=== PATIENT | male | born 1960 | race Caucasian/White ===

== ENCOUNTER 2019-08-27 12:24 | Inpatient (IN) | payer BC, SELFPAY ==
[2019-08-27] VITALS (17 sets, daily range): BP systolic 91–137; BP diastolic 59–81; PULSE 72–128; RESP 14–19; TEMP 36.6–37.1; O2SAT 97–100; BMI 30.6
[2019-08-27 13:41] LABS: Basophils Absolute Auto 0.1 K/mm3 (0.0-0.1); Basophils Percent Auto 0.7 % (0.2-1.2); Eosinophils Absolute Auto 0.1 K/mm3 (0-0.3); Eosinophils Percent Auto 1.2 % (0-4.4); Hematocrit 23.1 % (42.0-52.0); Hemoglobin 7.3 g/dL (14.0-18.0); Immature Granulocyte Absolute 0.13 K/mm3 (0.00-0.031); Immature Granulocyte Percent A 1.2 % (0-0.5); Lymphocytes Absolute Auto 1.91 K/mm3 (0.9-3.2); Mean Corpuscular HGB Conc 31.6 g/dl (32-36); Mean Corpuscular Hemoglobin 30.5 pg (26-34); Mean Corpuscular Volume 96.7 fl (80-100); Mean Platelet Volume 9.8 fl (7.4-10.4); Monocytes Absolute Auto 0.7 K/mm3 (0.1-0.6); Monocytes Percent Auto 6.6 % (2.6-8.5); Neutrophils Absolute Auto 7.7 K/mm3 (1.3-6.7); Neutrophils Percent Auto 72.3 % (45.5-73.1); Nucleated Red Blood Cells Absolute Auto 0.1 K/mm3 (0.0-0.012); Nucleated Red Blood Cells Perc 0.8 % (0.0-0.2); Platelet Count Result 404 k/mm3 (150-375); Red Blood Count 2.39 M/mm3 (4.6-6.20); Red Cell Distribution Width 14.1 % (11.5-14.5); White Blood Count 10.6 K/mm3 (4.5-10.0)
[2019-08-27 13:55] LABS: Alanine Aminotransferase 25 U/L (4-50); Alkaline Phosphatase 58 U/L (38-126); Aspartate Amino Transferase 26 U/L (17-59); Bilirubin,Total 0.2 mg/dL (0.2-1.3); Blood Urea Nitrogen 23 mg/dL (9-20); Calcium 9.1 mg/dL (8.4-10.2); Carbon Dioxide 24 mmol/L (22-30); Chloride 100 mmol/L (98-107); Estimated CRCL calculation 81 ml/min; Estimated Glomerular Filt Rate > 60; Glucose 106 mg/dL (75-110); INR 0.9; Potassium 4.3 mmol/L (3.4-5.0); Sodium 134 mmol/L (137-145)
[2019-08-27 13:56] LABS: Partial Thromboplastin Time 27.5 SECONDS (22.3-36.8)
--- NOTE | 2019-08-27 14:31 | ED.GIBLEED ---
HPI - GI Bleed General Chief complaint: GI Bleed Stated complaint: +BLOOD IN STOOL Time Seen by Provider: 08/27/19 14:21 Source: patient and RN notes reviewed Mode of arrival: ambulatory Limitations: no limitations History of Present Illness HPI Narrative: Pt is a 58 y/o male with a Hx of hemorrhoids, who presents to the ED with c/o black stools starting 8 days ago. He notes that he has had roughly 1 BM per day for the past week, and states that each stool has been black in color. Pt reports lightheadedness and dyspnea on exertion accompanying his dark stools, but denies any CP, ABD pain, or vomiting. He also notes having nausea shortly after defecating. Pt states that he is currently taking ASA 81 mg daily. MD complaint: melena Onset (ago): day(s) (8) Context: hemorrhoids Associated symptoms: nausea and other (dyspnea on exertion; lightheadedness) Related Data Home Medications Medication Instructions Recorded Confirmed atorvastatin 10 mg tablet 10 mg PO DAILY 06/18/19 06/18/19 lisinopril 20 mg tablet 20 mg PO DAILY 06/18/19 06/18/19 Allergies Allergy/AdvReac Type Severity Reaction Status Date / Time Penicillins Allergy Unknown Unknown Verified 08/27/19 14:32 Review of Systems Review of Systems: All systems reviewed & are unremarkable except as noted in HPI and below Cardiovascular: Cardiovascular: Denies chest pain Respiratory: Respiratory: Reports dyspnea on exertion Gastrointestinal: Gastrointestinal: Denies abdominal pain, Reports melena, Reports nausea and Denies vomiting Neurologic: Reports other (lightheadedness) PMFSH Past Medical History Medical History Hemorrhoids HLD (hyperlipidemia) Hypertension Nephrolithiasis Normal colonoscopy (~2010) UTI (urinary tract infection) Surgical History Surgical History Hx of colonoscopy at age 50 Hx of tonsillectomy (~1968) Social History Social History Smoking status: Light tobacco smoker Second hand tobacco smoke exposure: No Alcohol intake: never Gender identity (if verbalized by the patient): Male Exam Narrative: Exam Narrative: GENERAL: Well-appearing, well-nourished, and in no acute distress. HEAD: Normocephalic, atraumatic EYES: PERRLA and EOMI, conjunctiva clear without discharge THROAT:Mucous membranes moist, Oropharynx normal without erythema, exudate, peritonsillar swelling or fluctuance NECK: Supple, without lymphadenopathy or mass RESPIRATORY: No respiratory distress, Airway patent, Respirations non-labored, Clear to auscultation without rales, rhonchi or wheeze HEART: Regular rate and rhythm. No murmur heard. Normal peripheral pulses. ABDOMEN: Soft, nontender, nondistended, normal active bowel sounds. No masses. No rebound or guarding, No organomegaly. guaic positive, no rectal bleeding EXTREMITIES: No edema, normal strength with full range of motion. SKIN: Warm, dry, normal color without rash NEURO: Alert and oriented x3. CN 2-12 grossly intact. No focal deficits. PSYCH: Normal mood and affect. Course Consultations Consultation #1: Discussed case with operations manager station, Dr. Gottlieb. Agrees to consult. Advised to give the pt Protonix Q12 transfuse 2 units. Date: 08/27/19 Time: 14:48 Vital Signs Vital signs: Vital Signs Pulse Rate 103 H 08/27/19 13:04 Respiratory Rate 16 08/27/19 13:04 Blood Pressure 137/73 08/27/19 13:04 Pulse Oximetry 99 08/27/19 13:04 Temperature 98.7 F 08/27/19 15:53 Pulse Rate 101 H 08/27/19 16:22 Respiratory Rate 17 08/27/19 16:22 Blood Pressure 128/65 08/27/19 16:22 Pulse Oximetry 98 08/27/19 16:22 MDM - GI Bleed Lab Data Attestation: I reviewed the patient's lab results. Result diagrams: 08/27/19 13:12 08/27/19 13:12 Labs: Lab Results 08/27/19 08/27/19 08/27/19 Range/Units 13:12 1
[2019-08-27] MEDS: PANTOPRAZOLE SODIUM IV 40 MG VIAL IV PUSH ×2 (15:06→23:09)
--- NOTE | 2019-08-27 15:22 | WPDGICN ---
Assessment and Plan Additional Plan This is a 58-year-old white male patient I am asked to see at the request of the emergency room. Patient followed by Dr. Melani Edwards primary care physician. Patient in usual state of health until 1 week ago when he began to pass black melenic stools. He became somewhat fatigued and short of breath. Most dyspnea was noted on exertion. He denies any abdominal pain but may have had some nausea associated with bowel movements. He denies any heartburn or indigestion. His appetite has remained normal. He denies diarrhea or constipation. Because of fatigue presented to primary care office today and referred to the emergency room. He was found to have rather significant anemia. And is to be admitted to the hospital. Patient is seen in the emergency room with his present who assist in the history. Family history is noncontributory. There is no family history of colon or rectal disease. Past medical history is significant for hypertension and hypercholesterolemia. Patient had an unremarkable screening colonoscopy in 2010. Medications at home include atorvastatin and lisinopril. He takes a baby aspirin daily. Patient reports an allergy to penicillin. Physical exam reveals him to be alert. Vital signs are stable. HEENT exam unremarkable. Lungs are clear to auscultation and percussion. Heart is without murmur or extra sounds. Abdominal exam bowel sounds are present soft nontender with no organomegaly. Rectal exam was performed in the emergency room. Hemoccult-positive stools described by emergency room physician. Laboratory tests reveal hemoglobin 7.3 hct. 23.1 MCV of 96 Impression: 1. GI bleeding. Appears to be upper GI bleeding manifested by black melenic stools. Peptic ulcer disease is suspected. 2. Blood loss anemia. Plan is to transfuse to a stable hemoglobin. Plan is for IV proton pump inhibitor to be given 40 mg IV q.12 hours. Hemoglobin will be monitored. An EGD will be planned in the morning. We will follow with you during this hospital stay. GI Consult Note Consult date/time: 08/27/19 15:22 HPI: Wm Martinez is a 58 year old male [facility], [facility] Past Medical History Medical History Hemorrhoids HLD (hyperlipidemia) Hypertension Nephrolithiasis Normal colonoscopy (~2010) UTI (urinary tract infection) Surgical History Surgical History Hx of colonoscopy at age 50 Hx of tonsillectomy (~1968) Social History Social History Smoking status: Light tobacco smoker Second hand tobacco smoke exposure: No Alcohol intake: never Gender identity (if verbalized by the patient): Male Meds Home Medications and Allergies Home Medications Medication Instructions Recorded Confirmed Type atorvastatin 10 mg tablet 10 mg PO DAILY 06/18/19 06/18/19 History lisinopril 20 mg tablet 20 mg PO DAILY 06/18/19 06/18/19 History Allergies Allergy/AdvReac Type Severity Reaction Status Date / Time Penicillins Allergy Unknown Unknown Verified 08/27/19 14:32 Vital Signs Vital Signs - 24 hr 08/27/19 13:04 08/27/19 14:43 08/27/19 15:08 Pulse Rate 103 H 101 H 128 H Respiratory Rate 16 18 Blood Pressure 137/73 107/80 91/79 L Pulse Oximetry 99 98 Results Labs CBC & Chem 7: 08/27/19 13:12 08/27/19 13:12 Labs: Short CBC 08/27/19 Range/Units 13:12 WBC 10.6 H (4.5-10.0) K/mm3 Hgb 7.3 L (14.0-18.0) g/dL Hct 23.1 L (42.0-52.0) % Plt Count 404 H (150-375) k/mm3 BMP 08/27/19 13:12 Sodium 134 L Potassium 4.3 Chloride 100 Carbon Dioxide 24 BUN 23 H Creatinine 0.90 Glucose 106 Calcium 9.1 Liver Function 08/27/19 Range/Units 13:12 Total Bilirubin 0.2 (0.2-1.3) mg/dL AST 26 (17-59) U/L ALT 25 (4-50) U/L Alkaline Phosphatase 58 (38-126) U
--- NOTE | 2019-08-27 15:46 | PC.NURSE ---
blood consent signed and in chart
--- NOTE | 2019-08-27 16:50 | ADMGEN ---
This patient, Wm Martinez, was admitted to Medical Room 349-01. Patient arrived to unit at 1650. Patient/family oriented to hospital policies and general routines including ID bracelet, bed and alarms, visiting hours, pain management, procedures, bathroom and other care routines, personal items, smoking policy, room service/diet, and visiting hours. Valuables list has been completed. Information on how to activate the Rapid Response Team has been discussed. Patient/Family are encouraged to report perceived risks to care and to ask questions if they do not understand what they are told or what they should do.
--- NOTE | 2019-08-27 19:42 | PM.IMHP ---
H&P: HPI History of Present Illness Chief complaint: symptomatic anemia/upper gi bleeding Narrative: This is a pleasant 58-year-old male with known history of chronic hypertension and chronic hyperlipidemia who is normally on chronic aspirin therapy daily and presented to the hospital today from his primary care doctor's office secondary to increased generalized weakness, exertional dizziness, and exertional shortness of breath. The patient reports that he has had jet black stools for over a week now. He denies any bright red rectal bleeding. He has been nauseated but denies vomiting any dark emesis or blood. the patient denies any previous history of GI bleeds. He also denies any use of NSAIDs, steroids, or alcoholism. the patient last had a colonoscopy approximately 8 years ago. today the patient was evaluated emergency room and found to have a low H&H of 7.3/ 23.1. drafting detailer, Dr. Gottlieb has already evaluated the patient and plans to perform an EGD in the morning. On my encounter with the patient tonight he denies any lightheadedness, dizziness, shortness of breath, chest pain, abdominal pain, hematuria, dysuria, diarrhea, vomiting, or syncope. He states he feels much better now that he has had 1 unit of packed red blood cells transfuse. He has no other complaints. Review of Systems Review of Systems: All systems reviewed & are unremarkable except as noted in HPI and below PMFSH Past Medical History Medical History Hemorrhoids HLD (hyperlipidemia) Hypertension Nephrolithiasis Normal colonoscopy (~2010) UTI (urinary tract infection) Surgical History Surgical History Hx of colonoscopy at age 50 Hx of tonsillectomy (~1968) Family History Family History Grandparent Malignant neoplasm of prostate Father Hypertension Social History Social History Smoking status: Never smoker Second hand tobacco smoke exposure: No Alcohol intake: never Substance use: never Gender identity (if verbalized by the patient): Male Spiritual care concerns: No Agree to blood products: Yes Meds Home Medications and Allergies Home Medications Medication Instructions Recorded Confirmed Type atorvastatin 10 mg tablet 10 mg PO DAILY 06/18/19 08/27/19 History lisinopril 20 mg tablet 20 mg PO DAILY 06/18/19 08/27/19 History Allergies Allergy/AdvReac Type Severity Reaction Status Date / Time Penicillins Allergy Unknown Unknown Verified 08/27/19 14:32 Vital Signs Vital Signs - 24 hr 08/27/19 13:04 08/27/19 14:43 08/27/19 15:08 Temperature Pulse Rate 103 H 101 H 128 H Respiratory Rate 16 18 Blood Pressure 137/73 107/80 91/79 L Pulse Oximetry 99 98 08/27/19 15:35 08/27/19 15:46 08/27/19 15:53 Temperature 36.8 C 36.9 C 37.1 C Pulse Rate 101 H 101 H 101 H Respiratory Rate 18 18 19 Blood Pressure 126/70 123/70 123/70 Pulse Oximetry 100 100 08/27/19 16:22 08/27/19 16:53 08/27/19 17:53 Temperature 36.6 C 36.6 C Pulse Rate 101 H 102 H 99 Respiratory Rate 17 16 14 Blood Pressure 128/65 130/62 126/67 Pulse Oximetry 98 100 100 08/27/19 18:37 08/27/19 18:56 08/27/19 19:14 Temperature 37.1 C 36.9 C 37.1 C Pulse Rate 72 105 H 104 H Respiratory Rate 16 16 16 Blood Pressure 114/67 121/59 L 130/62 Pulse Oximetry 98 99 100 Exam Const: General: cooperative, healthy appearing, no acute distress, alert and awake Nutritional Appearance: well nourished Orientation/consciousness: patient oriented x3 HENMT: Head: normal to inspection General nose exam: Normal external nose present Face and sinus: normal facial exam Mouth: Yes Normal oral and palatal mucosa present and Yes oropharynx normal Eyes: Pupils: Equal, round and reactive pupils present EOM: EOMs
[2019-08-27] MEDS: LACTATED RINGERS 1,000 ML 125 ML IV CONT (23:09)
[2019-08-27 23:32] LABS: Hematocrit 24.8 % (42.0-52.0); Hemoglobin 8.1 g/dL (14.0-18.0)
[2019-08-28] VITALS (12 sets, daily range): BP systolic 109–125; BP diastolic 54–81; PULSE 76–104; RESP 14–20; TEMP 36.2–36.9; O2SAT 97–100
[2019-08-28 06:04] LABS: Basophils Percent Auto 0.5 % (0.2-1.2); Eosinophils Absolute Auto 0.1 K/mm3 (0-0.3); Hemoglobin 8.1 g/dL (14.0-18.0); Immature Granulocyte Absolute 0.06 K/mm3 (0.00-0.031); Immature Granulocyte Percent A 0.7 % (0-0.5); Mean Corpuscular HGB Conc 32.4 g/dl (32-36); Mean Corpuscular Hemoglobin 30.1 pg (26-34); Mean Corpuscular Volume 92.9 fl (80-100); Mean Platelet Volume 9.7 fl (7.4-10.4); Monocytes Absolute Auto 0.6 K/mm3 (0.1-0.6); Monocytes Percent Auto 6.8 % (2.6-8.5); Neutrophils Absolute Auto 5.9 K/mm3 (1.3-6.7); Nucleated Red Blood Cells Perc 0.3 % (0.0-0.2); Platelet Count Result 310 k/mm3 (150-375); Red Blood Count 2.69 M/mm3 (4.6-6.20); Red Cell Distribution Width 14.6 % (11.5-14.5); White Blood Count 8.7 K/mm3 (4.5-10.0)
[2019-08-28 06:34] LABS: Blood Urea Nitrogen 19 mg/dL (9-20); Calcium 8.2 mg/dL (8.4-10.2); Carbon Dioxide 22 mmol/L (22-30); Chloride 102 mmol/L (98-107); Glucose 89 mg/dL (75-110); Potassium 4.2 mmol/L (3.4-5.0); Sodium 133 mmol/L (137-145)
[2019-08-28 06:41] LABS: Estimated CRCL calculation 81 ml/min; Estimated Glomerular Filt Rate > 60
--- NOTE | 2019-08-28 07:09 | WPDANESEPPF ---
Anes - Initial Pre Proc Eval Procedure: Operation Date: 08/28/19 07:30 Proposed Procedures p Esophagogastroduodenoscopy - Wallace Gottlieb MD Date/Time: 08/28/19 07:09 Surgeon: Jayy Amador MD Pre Op Diagnosis: symptomatic anemia/upper gi bleeding Patient Data Age: 58 Gender: M Height: 5 ft 6 in Weight: 86.1 kg Last Vital Signs Temp 36.9 C 08/28/19 04:32 Pulse 93 08/28/19 04:32 Resp 14 08/28/19 04:32 BP 117/66 08/28/19 04:32 Pulse Ox 97 08/28/19 04:32 Allergies Allergy/AdvReac Type Severity Reaction Status Date / Time Penicillins Allergy Unknown Unknown Verified 08/27/19 14:32 Home Medications Medication Instructions Recorded Confirmed Type atorvastatin 10 mg tablet 10 mg PO DAILY 06/18/19 08/27/19 History lisinopril 20 mg tablet 20 mg PO DAILY 06/18/19 08/27/19 History Laboratory Tests 08/27/19 08/27/19 08/27/19 13:12 13:12 13:12 WBC 10.6 K/mm3 H K/mm3 (4.5-10.0) RBC 2.39 M/mm3 L M/mm3 (4.6-6.20) Hgb 7.3 g/dL L g/dL (14.0-18.0) Hct 23.1 % L % (42.0-52.0) MCV 96.7 fl fl (80-100) MCH 30.5 pg pg (26-34) MCHC 31.6 g/dl L g/dl (32-36) RDW 14.1 % % (11.5-14.5) Plt Count 404 k/mm3 H k/mm3 (150-375) MPV 9.8 fl fl (7.4-10.4) Immature Gran % (Auto) 1.2 % H % (0-0.5) Neut % (Auto) 72.3 % % (45.5-73.1) Lymph % (Auto) 18.0 % L % (18.3-44.2) [place] % (Auto) 6.6 % % (2.6-8.5) Eos % (Auto) 1.2 % % (0-4.4) Baso % (Auto) 0.7 % % (0.2-1.2) Lymph # (Auto) 1.91 K/mm3 K/mm3 (0.9-3.2) [place] # (Auto) 0.7 K/mm3 H K/mm3 (0.1-0.6) Eos # (Auto) 0.1 K/mm3 K/mm3 (0-0.3) Baso # (Auto) 0.1 K/mm3 K/mm3 (0.0-0.1) Abs Immat Gran (auto) 0.13 K/mm3 H K/mm3 (0.00-0.031) Absolute Neuts (auto) 7.7 K/mm3 H K/mm3 (1.3-6.7) Absolute Nucleated RBC 0.1 K/mm3 H K/mm3 (0.0-0.012) Nucleated RBC % 0.8 % H % (0.0-0.2) PT 12.0 Seconds Seconds (11.1-14.7) INR 0.9 APTT 27.5 SECONDS SECONDS (22.3-36.8) Sodium 134 mmol/L L mmol/L (137-145) Potassium 4.3 mmol/L mmol/L (3.4-5.0) Chloride 100 mmol/L mmol/L (98-107) Carbon Dioxide 24 mmol/L mmol/L (22-30) BUN 23 mg/dL H mg/dL (9-20) Creatinine 0.90 mg/dL mg/dL (0.7-1.3) Estim Creat Clear Calc 81 ml/min ml/min Estimated GFR > 60 (59 - ) Glucose 106 mg/dL mg/dL (75-110) Calcium 9.1 mg/dL mg/dL (8.4-10.2) Total Bilirubin 0.2 mg/dL mg/dL (0.2-1.3) AST 26 U/L U/L (17-59) ALT 25 U/L U/L (4-50) Alkaline Phosphatase 58 U/L U/L (38-126) Total Protein 7.0 g/dL g/dL (6.3-8.2) Albumin 4.0 g/dL g/dL (3.5-5.1) Blood Type Antibody Screen Crossmatch 01/08/27/19 08/28/19 13:12 23:01 05:13 WBC 8.7 K/mm3 K/mm3 (4.5-10.0) RBC 2.69 M/mm3 L M/mm3 (4.6-6.20) Hgb 8.1 g/dL L g/dL 8.1 g/dL L g/dL (14.0-18.0) (14.0-18.0) Hct 24.8 % L % 25.0 % L % (42.0-52.0) (42.0-52.0) MCV 92.9 fl fl (80-100) MCH 30.1 pg pg (26-34) MCHC 32.4 g/dl g/dl (32-36) RDW 14.6 % H % (11.5-14.5) Plt Count 310 k/mm3 k/mm3 (150-375) MPV 9.7 fl fl (7.4-10.4) Immature Gran % (Auto) 0.7 % H % (0-0.5) Neut % (Auto) 68.0 % % (45.5-73.1) Lymph % (Auto) 23.0 % % (18.3-44.2) [place] % (Auto) 6.8 % % (2.6-8.5) Eos % (Auto) 1.0 % % (0-4.4) Baso % (Auto) 0.5 % % (0.2-1.2) Lymph # (Auto) 2.00 K/mm3 K/mm3 (0.9-3.2) [place] # (Auto) 0.6 K/mm3 K/mm3 (0.1-0.6) Eos # (Auto) 0.1 K/mm3 K/mm
[2019-08-28] MEDS: LACTATED RINGERS 1,000 ML 150 ML IV CONT (07:13)
[2019-08-28] MEDS: LACTATED RINGERS 1,000 ML 125 ML IV CONT (09:08)
[2019-08-28] MEDS: PANTOPRAZOLE SODIUM IV 40 MG VIAL IV PUSH ×2 (09:08→20:39)
[2019-08-28 12:29] LABS: Hemoglobin 8.4 g/dL (14.0-18.0)
--- NOTE | 2019-08-28 13:10 | PM.IMPN ---
Progress Note: A&P Assessment and Plan (1) Upper gastrointestinal hemorrhage: Code(s): K92.2 - Gastrointestinal hemorrhage, unspecified Status: Acute Assessment and Plan: Underwent EGD by Dr. Gottlieb today which revealed duodenal ulcer - appreciate GI input. Protonix BID, advanced diet. Plan for follow-up EGD in [address] Gottlieb. Avoid NSAIDs and aspirin. Anticipate possible discharge tomorrow if H&H is stable. (2) Symptomatic anemia: Code(s): D64.9 - Anemia, unspecified Status: Acute Assessment and Plan: H&H 7.3, 23.1% on arrival he received 2 units packed RBC. Improved to 8.4, 26.0 % this afternoon. Patient was symptomatic with this prior to arrival with weakness and dizziness, now resolved. Recheck CBC in AM and transfuse PRN. (3) Hypertension: Qualifiers: Hypertension type: unspecified Qualified Code(s): I10 - Essential (primary) hypertension Code(s): I10 - Essential (primary) hypertension Status: Chronic Assessment and Plan: BP stable. Last 124/68. His home lisinopril was held this morning due to NPO status. Resume lisinopril in AM and monitor BP. (4) HLD (hyperlipidemia): Qualifiers: Hyperlipidemia type: unspecified Qualified Code(s): E78.5 - Hyperlipidemia, unspecified Code(s): E78.5 - Hyperlipidemia, unspecified Status: Chronic Assessment and Plan: Resume home statin therapy. (5) DVT prophylaxis: Code(s): Z29.9 - Encounter for prophylactic measures, unspecified Status: Acute Assessment and Plan: SCDs Subjective Date/time seen: 08/28/19 1200 Interval history: Mr. Martinez is a 58yo M admitted for GI bleed. He is feeling well this afternoon with no complaints. He denies nausea, vomiting, abdominal pain. No chest pain, shortness of breath, or calf tenderness. Review of Systems Review of Systems: Narrative: Twelve systems were reviewed with pertinent positives and negatives as per HPI. Exam Narrative: Exam Narrative: General: Male sitting up in bedside chair no acute distress, visiting with family at the bedside. HEENT: Normocephalic, EOMI, oral mucosa moist. Cardiovascular: Rate and rhythm regular. Respiratory: Lungs clear to auscultation all foster. Non-labored breathing. Tolerating room air. Abdomen: Soft, nondistended, bowel sounds present. No tenderness to palpation. Extremities: Peripheral pulses intact. No edema. Neuro: Alert and oriented. Speech is clear. Objective Data Vital Signs Vital Signs: Last Vital Signs Temp 98.2 F 08/28/19 13:49 Pulse 76 08/28/19 13:49 Resp 20 08/28/19 13:49 BP 124/68 08/28/19 13:49 Pulse Ox 100 08/28/19 13:49 Intake/Output Intake/Output: Intake & Output 08/25/19 08/26/19 08/27/19 08/28/19 23:59 23:59 23:59 23:59 Intake Total 792 2533 Output Total 2450 Balance 792 83 Meds/Results Medications: Active Medications Generic Name Dose Route Start Last Admin Trade Name Freq PRN Reason Stop Dose Admin Pantoprazole Sodium 40 mg 08/27/19 21:00 08/28/19 09:08 Protonix Iv IV PUSH 40 mg Q12HR CHEPE Administration Labs Labs: Laboratory Tests 08/28/19 12:18 08/28/19 05:13 Quality VTE Prophylaxis VTE prophylaxis: mechanical ordered
[2019-08-29 05:35] VITALS: BP 110/65; PULSE 84; RESP 16; TEMP 36.6; O2SAT 97
[2019-08-29 06:02] LABS: Basophils Percent Auto 0.5 % (0.2-1.2); Eosinophils Absolute Auto 0.1 K/mm3 (0-0.3); Eosinophils Percent Auto 1.9 % (0-4.4); Hematocrit 24.6 % (42.0-52.0); Hemoglobin 7.9 g/dL (14.0-18.0); Immature Granulocyte Absolute 0.04 K/mm3 (0.00-0.031); Immature Granulocyte Percent A 0.6 % (0-0.5); Lymphocytes Absolute Auto 1.74 K/mm3 (0.9-3.2); Lymphocytes Percent Auto 27.2 % (18.3-44.2); Mean Corpuscular HGB Conc 32.1 g/dl (32-36); Mean Corpuscular Hemoglobin 30.4 pg (26-34); Mean Corpuscular Volume 94.6 fl (80-100); Mean Platelet Volume 9.7 fl (7.4-10.4); Monocytes Absolute Auto 0.5 K/mm3 (0.1-0.6); Monocytes Percent Auto 7.4 % (2.6-8.5); Neutrophils Percent Auto 62.4 % (45.5-73.1); Platelet Count Result 301 k/mm3 (150-375); Red Cell Distribution Width 14.7 % (11.5-14.5); White Blood Count 6.4 K/mm3 (4.5-10.0)
[2019-08-29 06:18] LABS: Blood Urea Nitrogen 17 mg/dL (9-20); Calcium 8.3 mg/dL (8.4-10.2); Carbon Dioxide 24 mmol/L (22-30); Chloride 103 mmol/L (98-107); Estimated CRCL calculation 73 ml/min; Estimated Glomerular Filt Rate > 60; Glucose 95 mg/dL (75-110); Potassium 4.4 mmol/L (3.4-5.0); Sodium 134 mmol/L (137-145)
[2019-08-29 07:46] VITALS: PULSE 84; RESP 16; O2SAT 97
[2019-08-29] MEDS: ATORVASTATIN 10 MG TABLET PO (09:32)
[2019-08-29] MEDS: PANTOPRAZOLE SODIUM IV 40 MG VIAL IV PUSH (09:32)
[2019-08-29] MEDS: lisinopriL 20 MG TABLET PO (09:32)
[2019-08-29 12:31] LABS: Hematocrit 25.1 % (42.0-52.0); Hemoglobin 8.1 g/dL (14.0-18.0)
[2019-08-29 14:00] VITALS: BP 124/58; PULSE 97; RESP 18; TEMP 36.6; O2SAT 100
--- NOTE | 2019-08-29 14:45 | WPDGIPROGNO ---
Progress Note: A&P Additional Plan Patient alert and comfortable this morning. He denies pain. He states he feels much better after blood transfusion. Current we ambulating in the room. Tolerating regular diet. Physical exam reveals him to be alert. Vital signs stable. He is anicteric. Lungs are clear. Heart is without murmur. Abdominal exam bowel sounds are present soft nontender with no organomegaly. Laboratory test with hemoglobin 8.1 hematocrit 25. MCV 94. Stable. Impression 1. Duodenal ulcer. Patient appears to improved after transfusion. Now on proton pump inhibitors. Plan is to continue oral Protonix after discharge. Patient should avoid nonsteroidal anti-inflammatory agents. Should he have any signs of bleeding he is to contact myself for primary care physician as soon as possible. Anticipate follow-up EGD in 2 months. Subjective Date/time seen: 08/29/19 14:45 Objective Data Vital Signs Vital Signs: Vital Signs - 24 hr 08/28/19 22:00 08/29/19 05:35 08/29/19 07:46 Temperature 36.4 C L 36.6 C Pulse Rate 89 84 84 Respiratory Rate 14 16 16 Blood Pressure 111/56 L 110/65 Pulse Oximetry 99 97 97 Intake/Output Intake/Output: Intake & Output 08/26/19 08/27/19 08/28/19 08/29/19 23:59 23:59 23:59 23:59 Intake Total 792 4113 540 Output Total 4150 525 Balance 792 -37 15 Meds/Results Medications: Active Medications Generic Name Dose Route Start Last Admin Trade Name Freq PRN Reason Stop Dose Admin Atorvastatin Calcium 10 mg 08/29/19 09:00 08/29/19 09:32 Lipitor PO 10 mg DAILY CHEPE Administration Lisinopril 20 mg 08/29/19 09:00 08/29/19 09:32 Prinivil PO 20 mg DAILY CHEPE Administration Pantoprazole Sodium 40 mg 08/27/19 21:00 08/29/19 09:32 Protonix Iv IV PUSH 40 mg Q12HR CHEPE Administration Labs Labs: Laboratory Results - last 24 hr 08/29/19 08/29/19 08/29/19 05:24 05:24 12:23 WBC 6.4 RBC 2.60 L Hgb 7.9 L 8.1 L Hct 24.6 L 25.1 L MCV 94.6 MCH 30.4 MCHC 32.1 RDW 14.7 H Plt Count 301 MPV 9.7 Immature Gran % (Auto) 0.6 H Neut % (Auto) 62.4 Lymph % (Auto) 27.2 [place] % (Auto) 7.4 Eos % (Auto) 1.9 Baso % (Auto) 0.5 Lymph # (Auto) 1.74 [place] # (Auto) 0.5 Eos # (Auto) 0.1 Baso # (Auto) 0.0 Abs Immat Gran (auto) 0.04 H Absolute Neuts (auto) 4.0 Absolute Nucleated RBC 0.0 Nucleated RBC % 0.0 Sodium 134 L Potassium 4.4 Chloride 103 Carbon Dioxide 24 BUN 17 Creatinine 1.00 Estim Creat Clear Calc 73 Estimated GFR > 60 Glucose 95 Calcium 8.3 L
--- NOTE | 2019-08-29 19:21 | PM.DS ---
DS: Diagnosis Admitting Diagnosis Admitting Diagnosis: Anemia, unspecified Discharge Diagnosis (1) Upper gastrointestinal hemorrhage: Code(s): K92.2 - Gastrointestinal hemorrhage, unspecified Status: Acute Assessment and Plan: Date of Service 08/29/19 Mr. Martinez is a 58yo M with history of hypertension and hyperlipidemia who presented to the emergency department for evaluation of dark black stools. Hgb was 7.3 on arrival and he received 2 units of packed red blood cells. GI was consulted and he underwent EGD by Dr Gottlieb 08/28/19 which revealed a duodenal ulcer. The ulcer appearted to be clotted and no longer bleeding. He was started on protonix BID and instructed to avoid NSAIDs and aspirin. H&H remained low but stable. He was tolerating a regular diet prior to discharge. He was hemodynamically stable for discharge 08/29/19 with instructions to follow up with Dr Gottlieb for a repeat EGD in 2 months and follow up with PCP in 1 week. Repeat CBC after discharge to monitor H&H. Underwent EGD by Dr. Gottlieb 08/28/19 which revealed duodenal ulcer. Protonix BID, advanced diet. Plan for follow-up EGD in [address] Gottlieb. Avoid NSAIDs and aspirin. (2) Symptomatic anemia: Code(s): D64.9 - Anemia, unspecified Status: Acute Assessment and Plan: H&H 7.3, 23.1% on arrival he received 2 units packed RBC. Improved to 8.4, 26.0 %. Patient was symptomatic with this prior to arrival with weakness and dizziness, now resolved. Recheck CBC after discharge with results to PCP. (3) Hypertension: Qualifiers: Hypertension type: unspecified Qualified Code(s): I10 - Essential (primary) hypertension Code(s): I10 - Essential (primary) hypertension Status: Chronic Assessment and Plan: BP stable on home lisinopril. (4) HLD (hyperlipidemia): Qualifiers: Hyperlipidemia type: unspecified Qualified Code(s): E78.5 - Hyperlipidemia, unspecified Code(s): E78.5 - Hyperlipidemia, unspecified Status: Chronic Assessment and Plan: Resume home statin therapy. (5) DVT prophylaxis: Code(s): Z29.9 - Encounter for prophylactic measures, unspecified Status: Acute Assessment and Plan: SCDs DS: Summary Time Spent with Patient Time attestation: Total time spent providing and/or coordinating discharge services: 35 minutes Exam Narrative: Exam Narrative: General: Male sitting up in bedside chair no acute distress, visiting with family at the bedside. HEENT: Normocephalic, EOMI, oral mucosa moist. Cardiovascular: Rate and rhythm regular. Respiratory: Lungs clear to auscultation all foster. Non-labored breathing. Tolerating room air. Abdomen: Soft, nondistended, bowel sounds present. No tenderness to palpation. Extremities: Peripheral pulses intact. No edema. Neuro: Alert and oriented. Speech is clear. DS: Data Data Completed and Pending Labs on day of discharge: Labs from last 24 hours 08/29/19 08/29/19 08/29/19 12:23 05:24 05:24 WBC 6.4 RBC 2.60 L Hgb 8.1 L 7.9 L Hct 25.1 L 24.6 L MCV 94.6 MCH 30.4 MCHC 32.1 RDW 14.7 H Plt Count 301 MPV 9.7 Immature Gran % (Auto) 0.6 H Neut % (Auto) 62.4 Lymph % (Auto) 27.2 [place] % (Auto) 7.4 Eos % (Auto) 1.9 Baso % (Auto) 0.5 Lymph # (Auto) 1.74 [place] # (Auto) 0.5 Eos # (Auto) 0.1 Baso # (Auto) 0.0 Abs Immat Gran (auto) 0.04 H Absolute Neuts (auto) 4.0 Absolute Nucleated RBC 0.0 Nucleated RBC % 0.0 Sodium 134 L Potassium 4.4 Chloride 103 Carbon Dioxide 24 BUN 17 Creatinine 1.00 Estim Creat Clear Calc 73 Estimated GFR > 60 Glucose 95 Calcium 8.3 L Discharge Plan Discharge Attending physician on discharge: Yasmin Aguirre Consulting providers: Fed
== END 2019-08-29 17:00 | disposition home or self-care (01) | DRG 378 ==
LOC: ANHED 16:02 → ANH3MED 16:07
PROVIDERS: Emergency Medicine; Family Medicine; Internal Medicine Gastroenterology; Physician Assistant; Admitting Provider Internal Medicine; Emergency Provider General Practice; PCP Family Medicine; Visit Provider Family Medicine
PROC: 0DJ08ZZ Inspection of Upper Intestinal Tract, Via Natural or Artificial Opening Endoscopic (ICD-10-PCS; CPT 43235; principal; 2019-08-28 07:30)
DX: K26.0 Acute duodenal ulcer with hemorrhage (principal); D62 Acute posthemorrhagic anemia; I10 Essential (primary) hypertension; E78.5 Hyperlipidemia, unspecified; Z79.82 Long term (current) use of aspirin; K64.9 Unspecified hemorrhoids; Z87.442 Personal history of urinary calculi; Z87.440 Personal history of urinary (tract) infections; D64.9 Anemia, unspecified; F17.200 Nicotine dependence, unspecified, uncomplicated; E78.00 Pure hypercholesterolemia, unspecified; E66.9 Obesity, unspecified; Z68.30 Body mass index [BMI] 30.0-30.9, adult
CPT/HCPCS: 36415; 36430; 80048; 80053; 85014; 85018; 85025; 85610; 85730; 86850; 86900; 86901; 86923; 87081; 96374; 99285; A9270; C9113; J2704; J7120; P9016

== ENCOUNTER 2019-11-01 05:42 | Day surgery (SDC) | payer BC, SELFPAY ==
[2019-10-28 11:19] VITALS: BMI 32.0
--- NOTE | ~2019-11-01 | CT_ITS ---
EXAMINATION: CT abdomen pelvis w con INDICATION: Duodenal mass TECHNIQUE: Computed tomographic images of the abdomen and pelvis were obtained after the administrati on of 100 cc of Omnipaque 350 intravenous contrast. The dose-length product (DLP) was 601.24 mGy-cm. Automated exposure control and iterative reconstruction technique were employed. COMPARISON: 11/29/2005 FINDINGS: There is an 8 mm nodule in the right middle lobe. There is a 5 mm nodule in the right lower lobe on image 28. The heart size is normal. There is a 1.4 cm cyst of the liver dome. The liver is o therwise unremarkable. The spleen, gallbladder, and right adrenal gland are normal. There is a 6.5 x 6.0 cm centrally necrotic mass of the left kidney upper pole. There is a subtle 2.0 x 1.6 cm lesion i n the right kidney upper pole. There are at least six hypervascular masses of the pancreas. One in th e head of the pancreas measures 3.5 x 2.5 cm and invades the medial wall of the second portion of the duodenum. There are two lesions of the left adrenal gland which measure 1.1 and 0.9 cm. There is a 7 mm nonobstructing stone of the right kidney lower pole. No pathologically enlarged abdominal or pelv ic lymph nodes are identified. There is no free intraperitoneal gas or evidence of bowel obstruction. IMPRESSION: 1. Mass of the left kidney upper pole consistent with renal cell carcinoma. 2. Multiple hypervascular pancreatic masses, including one in the head of the pancreas which invades the medial wall of the second portion of the duodenum and likely accounts for the endoscopically dete cted mass, consistent with renal cell carcinoma metastases. 3. Right lung nodules and left adrenal masses, suspicious for metastatic disease. 4. Indeterminate right kidney upper pole mass, possibly renal cell carcinoma. Consider further evalua tion by CT or MRI without and with contrast. 5. Nonobstructing right nephrolithiasis. Reviewed, dictated and finalized at location A. IMPRESSION: 1. Mass of the left kidney upper pole consistent with renal cell carcinoma. 2. Multiple hypervascular pancreatic masses, including one in the head of the p ancreas which invades the medial wall of the second portion of the duodenum and likely accounts for the endoscopically detected mass, consistent with renal ce ll carcinoma metastases. 3. Right lung nodules and left adrenal masses, suspicious for metastatic diseas e. 4. Indeterminate right kidney upper pole mass, possibly renal cell carcinoma. C onsider further evaluation by CT or MRI without and with contrast. 5. Nonobstructing right nephrolithiasis.
[2019-11-01 06:15] VITALS: BP 123/69; PULSE 86; RESP 16; TEMP 36.4; O2SAT 100; BMI 31.0
[2019-11-01] MEDS: LACTATED RINGERS 1,000 ML 150 ML IV CONT (06:32)
--- NOTE | 2019-11-01 07:00 | WPDANESEPPF ---
Anes - Initial Pre Proc Eval Procedure: Operation Date: 11/01/19 07:30 Proposed Procedures p Esophagogastroduodenoscopy - Wallace Gottlieb MD Date/Time: 11/01/19 07:00 Surgeon: Wallace Gottlieb MD Pre Op Diagnosis: duodenal ulcer Patient Data Age: 59 Gender: M Height: 5 ft 6 in Weight: 87.3 kg Last Vital Signs Temp 97.5 F L 11/01/19 06:15 Pulse 86 11/01/19 06:15 Resp 16 11/01/19 06:15 BP 123/69 11/01/19 06:15 Pulse Ox 100 11/01/19 06:15 Allergies Allergy/AdvReac Type Severity Reaction Status Date / Time Penicillins Allergy Unknown Unknown Verified 11/01/19 06:12 Home Medications Medication Instructions Recorded Confirmed Type pantoprazole 40 mg PO BID 30 Days #60 tablet 08/29/19 11/01/19 Rx atorvastatin 10 mg tablet 10 mg PO DAILY #90 tablet 08/30/19 11/01/19 Rx lisinopril 20 mg tablet 20 mg PO DAILY #90 tablet 08/30/19 11/01/19 Rx ferrous sulfate 325 mg (65 mg 325 mg PO DAILY #100 tablet 10/20/19 11/01/19 Rx iron) tablet Patient hx anesthesia problems: none Family hx anesthesia problems: none PMFSH Social History Social History Smoking status: Never smoker Second hand tobacco smoke exposure: No Alcohol intake: never Substance use: never Gender identity (if verbalized by the patient): Male Spiritual care concerns: No Agree to blood products: Yes Anes - Eval Final PreProcedure Day of Procedure 11/01/19 07:00 Patient weight: normal Heart: regular rate and rhythm Lungs: clear to auscultation Airway: Mallampati scale class II Neurological: alert and oriented Last oral intake: >/= 8 hours ASA classification: II Emergent: no Anesthetic plan: proceed Anesthesia type and monitoring: general GIVS and standard monitoring Informed Consent: The patient's anesthetic plan and its attendant risks and benefits were discussed with the patient/family/POA. Questions were solicited and answers provided to the satisfaction of the patient/family/POA.
[2019-11-01] MEDS: BENZOCAINE (*SP) 60 ML SPRAY CAN (HURRICAINE) 1 SPRAY MUCOUS MEM (07:41)
--- NOTE | 2019-11-01 07:49 | WPDGICN ---
Assessment and Plan Additional Plan This is a 59-year-old white male patient who presents for follow-up of bleeding ulcer. Patient had GI bleeding 1-/2 to 2 months ago. He had a suspicious appearance to a duodenal ulcer. Patient presents today for follow-up exam of this ulcer. Given his previous suspicious appearance. Currently patient feels well. He has had no additional bleeding. He denies abdominal pain. He has tolerated diet without difficulty. Current medications include Protonix. 40 mg p.o. b.i.d.. Also lisinopril, iron, atorvastatin, allergy reported to Penicillin. Past medical history significant for hypertension, kidney stones, urinary tract infection. Physical exam reveals him to be alert. Vital signs stable. HEENT exam unremarkable. He is anicteric. Lungs are clear to auscultation and percussion. Heart is without murmur or extra sounds. Abdominal exam bowel sounds are present soft nontender with no organomegaly. Impression history of GI bleed with suspicious duodenal ulcer. Plan is for follow-up EGD to assess ulcer. Further recommendations after EGD. GI Consult Note Consult date/time: 11/01/19 07:49 HPI: Wm Martinez is a 59 year old male [facility] Social History Social History Smoking status: Never smoker Second hand tobacco smoke exposure: No Alcohol intake: never Substance use: never Gender identity (if verbalized by the patient): Male Spiritual care concerns: No Agree to blood products: Yes Meds Home Medications and Allergies Home Medications Medication Instructions Recorded Confirmed Type pantoprazole 40 mg PO BID 30 Days #60 tablet 08/29/19 11/01/19 Rx atorvastatin 10 mg tablet 10 mg PO DAILY #90 tablet 08/30/19 11/01/19 Rx lisinopril 20 mg tablet 20 mg PO DAILY #90 tablet 08/30/19 11/01/19 Rx ferrous sulfate 325 mg (65 mg 325 mg PO DAILY #100 tablet 10/20/19 11/01/19 Rx iron) tablet Allergies Allergy/AdvReac Type Severity Reaction Status Date / Time Penicillins Allergy Unknown Unknown Verified 11/01/19 06:12 Vital Signs Vital Signs - 24 hr 11/01/19 06:15 Temperature 36.4 C L Pulse Rate 86 Respiratory Rate 16 Blood Pressure 123/69 Pulse Oximetry 100
[2019-11-01 07:55] VITALS: BP 118/73; PULSE 62; RESP 16; O2SAT 100
[2019-11-01 08:05] VITALS: BP 98/60; PULSE 91; RESP 20; O2SAT 98
[2019-11-01 08:15] VITALS: BP 121/59; PULSE 84; RESP 19; O2SAT 99
[2019-11-01 08:33] LABS: Alanine Aminotransferase 15 U/L (4-50); Albumin Level 3.5 g/dL (3.5-5.1); Alkaline Phosphatase 64 U/L (38-126); Aspartate Amino Transferase 17 U/L (17-59); Bilirubin,Total 0.1 mg/dL (0.2-1.3); Blood Urea Nitrogen 14 mg/dL (9-20); Calcium 8.5 mg/dL (8.4-10.2); Carbon Dioxide 25 mmol/L (22-30); Chloride 108 mmol/L (98-107); Estimated CRCL calculation 73 ml/min; Estimated Glomerular Filt Rate > 60; Glucose 100 mg/dL (75-110); Sodium 138 mmol/L (137-145)
== END 2019-11-01 08:39 | disposition home or self-care (01) ==
PROVIDERS: PCP Family Medicine; Visit Provider Internal Medicine Gastroenterology
PROC: 0DJ08ZZ Inspection of Upper Intestinal Tract, Via Natural or Artificial Opening Endoscopic (ICD-10-PCS; CPT 43235; principal; 2019-11-01 07:30)
DX: K26.9 Duodenal ulcer, unspecified as acute or chronic, without hemorrhage or perforation (principal); R91.1 Solitary pulmonary nodule; N20.0 Calculus of kidney; R93.3 Abnormal findings on diagnostic imaging of other parts of digestive tract; R93.422 Abnormal radiologic findings on diagnostic imaging of left kidney; R93.421 Abnormal radiologic findings on diagnostic imaging of right kidney; I10 Essential (primary) hypertension
CPT/HCPCS: 43239; 36415; 74177; 80053; 88305; 88342; J2704; J7120; Q9967

== ENCOUNTER 2019-11-08 01:16 | Day surgery (SDC) | payer BC, SELFPAY ==
[2019-11-05 13:38] VITALS: BMI 31.4
[2019-11-08 06:43] VITALS: BP 126/62; PULSE 83; RESP 16; TEMP 36.1; O2SAT 100
[2019-11-08] MEDS: LACTATED RINGERS 1,000 ML 150 ML IV CONT (06:46)
--- NOTE | 2019-11-08 06:51 | WPDANESEPPF ---
Anes - Initial Pre Proc Eval Procedure: Operation Date: 11/08/19 08:00 Proposed Procedures p Esophagogastroduodenoscopy With Biopsy - Wallace Gottlieb MD Date/Time: 11/08/19 06:51 Surgeon: Wallace Gottlieb MD Pre Op Diagnosis: Abmormal CT/ Duodenal Mass Patient Data Age: 59 Gender: M Height: 5 ft 6 in Weight: 88.5 kg Last Vital Signs Temp 36.1 C L 11/08/19 06:43 Pulse 83 11/08/19 06:43 Resp 16 11/08/19 06:43 BP 126/62 11/08/19 06:43 Pulse Ox 100 11/08/19 06:43 Allergies Allergy/AdvReac Type Severity Reaction Status Date / Time Penicillins Allergy Unknown Unknown Verified 11/08/19 06:23 Home Medications Medication Instructions Recorded Confirmed Type pantoprazole 40 mg PO BID 30 Days #60 tablet 08/29/19 11/08/19 Rx atorvastatin 10 mg tablet 10 mg PO DAILY #90 tablet 08/30/19 11/08/19 Rx lisinopril 20 mg tablet 20 mg PO DAILY #90 tablet 08/30/19 11/08/19 Rx ferrous sulfate 325 mg (65 mg 325 mg PO DAILY #100 tablet 10/20/19 11/08/19 Rx iron) tablet Patient hx anesthesia problems: none Family hx anesthesia problems: none PMFSH Social History Social History Smoking status: Never smoker Second hand tobacco smoke exposure: No Alcohol intake: never Substance use: never Gender identity (if verbalized by the patient): Male Spiritual care concerns: No Agree to blood products: Yes Anes - Eval Final PreProcedure Day of Procedure 11/08/19 06:51 Patient weight: obese Heart: regular rate and rhythm Lungs: clear to auscultation Airway: Mallampati scale class II Neurological: alert and oriented Last oral intake: >/= 8 hours ASA classification: IV Emergent: no Anesthetic plan: proceed Anesthesia type and monitoring: general GIVS and standard monitoring Informed Consent: The patient's anesthetic plan and its attendant risks and benefits were discussed with the patient/family/POA. Questions were solicited and answers provided to the satisfaction of the patient/family/POA.
[2019-11-08] MEDS: BENZOCAINE (*SP) 60 ML SPRAY CAN (HURRICAINE) 1 SPRAY MUCOUS MEM (07:38)
--- NOTE | 2019-11-08 07:47 | WPDGICN ---
Assessment and Plan Assessment and plan (1) Abnormal CT scan: Code(s): R93.89 - Abnormal findings on diagnostic imaging of other specified body structures Status: Acute Assessment and Plan: Abnormal CT scan suggest renal mass with pancreatic metastases may be pulmonary metastases plan is for follow-up EGD to biopsy duodenal mass. Alternatively biopsy of renal mass may be required. Anticipate Oncology referral subsequently. (2) Duodenal mass: Code(s): K31.89 - Other diseases of stomach and duodenum Status: Acute GI Consult Note Consult date/time: 11/08/19 07:47 HPI: Wm Martinez is a 59 year old male Seen in evaluation at the request of Dr. Willingham. Patient hospitalized with GI bleeding several months ago. Was found to have duodenal ulceration. Patient returned for follow-up exam in found to have nonhealing ulceration with beginning of a duodenal mass. Histology at that time only confirmed an ulcer. CT scan was performed which revealed a necrotic renal mass pancreatic mass and several pulmonary lesions. Patient presents today for follow-up EGD for additional biopsies of the duodenal mass. Currently patient feels well. His current weight appetite bowel movements are normal. He denies any additional bleeding. He denies abdominal pain. His weight has remained stable. Family history is noncontributory. Review of Systems Review of Systems: All systems reviewed & are unremarkable except as noted in HPI and below PMFSH Past Medical History Medical History Hemorrhoids HLD (hyperlipidemia) Hypertension Nephrolithiasis Normal colonoscopy (~2010) UTI (urinary tract infection) Surgical History Surgical History Hx of colonoscopy at age 50 Hx of tonsillectomy (~1968) Family History Family History Grandparent Malignant neoplasm of prostate Father Hypertension Social History Social History Smoking status: Never smoker Second hand tobacco smoke exposure: No Alcohol intake: never Substance use: never Gender identity (if verbalized by the patient): Male Spiritual care concerns: No Agree to blood products: Yes Meds Home Medications and Allergies Home Medications Medication Instructions Recorded Confirmed Type pantoprazole 40 mg PO BID 30 Days #60 tablet 08/29/19 11/08/19 Rx atorvastatin 10 mg tablet 10 mg PO DAILY #90 tablet 08/30/19 11/08/19 Rx lisinopril 20 mg tablet 20 mg PO DAILY #90 tablet 08/30/19 11/08/19 Rx ferrous sulfate 325 mg (65 mg 325 mg PO DAILY #100 tablet 10/20/19 11/08/19 Rx iron) tablet Allergies Allergy/AdvReac Type Severity Reaction Status Date / Time Penicillins Allergy Unknown Unknown Verified 11/08/19 06:23 Vital Signs Vital Signs - 24 hr 11/08/19 06:43 Temperature 36.1 C L Pulse Rate 83 Respiratory Rate 16 Blood Pressure 126/62 Pulse Oximetry 100 Exam Narrative: Exam Narrative: Physical exam reveals him to be alert. Vital signs stable. HEENT exam unremarkable. Lungs are clear to auscultation and percussion. Heart is without murmur or extra sounds. Abdominal exam bowel sounds are present soft nontender no hepatosplenomegaly. Digital external rectal exam deferred.
[2019-11-08 07:53] VITALS: BP 106/60; PULSE 93; RESP 23; O2SAT 95
[2019-11-08 08:03] VITALS: BP 105/48; PULSE 93; RESP 21; O2SAT 99
[2019-11-08 08:26] VITALS: BP 102/60; PULSE 84; RESP 15; O2SAT 99
== END 2019-11-08 08:27 | disposition home or self-care (01) ==
PROVIDERS: PCP Family Medicine; Visit Provider Internal Medicine Gastroenterology
PROC: 0DJ08ZZ Inspection of Upper Intestinal Tract, Via Natural or Artificial Opening Endoscopic (ICD-10-PCS; CPT 43235; principal; 2019-11-08 08:00)
DX: K31.89 Other diseases of stomach and duodenum (principal); D64.9 Anemia, unspecified; I10 Essential (primary) hypertension; E78.5 Hyperlipidemia, unspecified; E66.9 Obesity, unspecified; Z68.31 Body mass index [BMI] 31.0-31.9, adult
CPT/HCPCS: 43239; 88305; J2704; J7120

== ENCOUNTER 2019-11-16 09:39 | Outpatient (CLI) | payer BC, SELFPAY ==
[2019-11-12 14:24] VITALS: BMI 32.0
[2019-11-16] VITALS (12 sets, daily range): BP systolic 112–131; BP diastolic 57–78; PULSE 78–96; RESP 18–20; TEMP 36.2; O2SAT 95–100
--- NOTE | ~2019-11-16 | XR_ITS ---
EXAMINATION: XR chest 1V portable DATE: 11/16/2019 13:55 INDICATION: Status post percutaneous biopsy of a right middle lobe nodule. TECHNIQUE: frontal view of the chest was obtained. COMPARISON: Chest radiograph dated 11/16/2019 at 12:34 PM FINDINGS: The lungs remain clear with no focal airspace opacities, pulmonary edema, pleural effusion or pneumot horax. The cardiomediastinal silhouette is normal. IMPRESSION: 1. No pneumothorax or other acute cardiopulmonary disease. Reviewed, dictated and finalized at location A.
--- NOTE | ~2019-11-16 | XR_ITS ---
EXAMINATION: XR chest 1V DATE: 11/16/2019 12:36 INDICATION: Status post percutaneous right lung biopsy TECHNIQUE: frontal view of the chest was obtained. COMPARISON: None FINDINGS: The lungs are clear with no focal airspace opacities, pulmonary edema, pleural effusion or pneumothor ax. The cardiomediastinal silhouette is normal. Visualized bones and soft tissues are unremarkable. IMPRESSION: 1. No pneumothorax or other acute cardiopulmonary disease post percutaneous right lung biopsy Reviewed, dictated and finalized at location A. IMPRESSION: 1. No pneumothorax or other acute cardiopulmonary disease post percutaneous rig ht lung biopsy
--- NOTE | ~2019-11-16 | CT_ITS ---
EXAMINATION: CT biopsy lung DATE: 11/16/2019 12:45 INDICATION: Right middle lobe nodule concerning for metastatic disease. TECHNIQUE: The procedure including the risks and benefits was discussed with the patient. Risks discu ssed included infection, approximately 1/20 risk of symptomatic hemorrhage beyond mild hemoptysis, ap proximately 1/3 risk of pneumothorax, and approximately 1/10 risk of pneumothorax severe enough to wa rrant chest tube placement. The patient understood the risks and agreed to proceed. The patient was p laced supine. The skin overlying the parasternal anterior right chest wall was prepped and draped in sterile fashion. Anesthetic was administered with 1% lidocaine subcutaneously. A 19 gauge outer ne edle was advanced under CT guidance to the lesion of interest. A 20 gauge core biopsy needle was then used to obtain 5 core biopsy specimens. The needle was removed and the entry site was cleaned and dr essed. There were no immediate complications. The dose-length product was 218.24 mGy-cm. FINDINGS: CT images demonstrate the outer needle tip adjacent to an 8 mm right middle lobe nodule. On the psychiatric secretary images and additional 12 mm nodule is identified in the perihilar right upper lobe. Heart size is normal. No pericardial or pleural effusion. No pathologically enlarged thoracic lymphadenopat hy. IMPRESSION: 1. Successful CT-guided biopsy of an 8 mm right middle lobe nodule which along with a second 12 mm no dule in the perihilar right upper lobe are concerning for metastatic disease. Reviewed, dictated and finalized at location A. IMPRESSION: 1. Successful CT-guided biopsy of an 8 mm right middle lobe nodule which along with a second 12 mm nodule in the perihilar right upper lobe are concerning for metastatic disease.
--- NOTE | ~2019-11-16 | XR_ITS ---
EXAMINATION: XR chest 1V portable DATE: 11/16/2019 15:24 INDICATION: Status post percutaneous right lung biopsy TECHNIQUE: frontal view of the chest was obtained. COMPARISON: Chest radiograph dated 11/16/2019 at 1:55 PM FINDINGS: The lungs remain clear with no focal airspace opacities, pulmonary edema, pleural effusion or pneumot horax. The cardiomediastinal silhouette is normal. IMPRESSION: 1. No pneumothorax or other acute cardiopulmonary disease post biopsy of a right middle lobe nodule s uspicious for metastatic disease. Reviewed, dictated and finalized at location A. IMPRESSION: 1. No pneumothorax or other acute cardiopulmonary disease post biopsy of a righ t middle lobe nodule suspicious for metastatic disease.
[2019-11-16 10:12] LABS: Mean Platelet Volume 9.4 fl (7.4-10.4); Platelet Count Result 372 k/mm3 (150-375)
[2019-11-16 10:30] LABS: INR 0.9
--- NOTE | 2019-11-16 15:48 | SUR.PHASEII ---
1350 PORTABLE CHEST XRAY TAKEN. 1520 PORTABLE CHEST XRAY TAKEN.
--- NOTE | 2019-11-16 15:53 | SUR.PHASEII ---
4325 DR EDWARDS SPEAKING WITH PT & SPOUSE.
== END 2019-11-16 09:40 | disposition home or self-care (01) ==
LOC: SURGERY 09:42 → ANHIMG 09:44
PROVIDERS: Radiology Diagnostic Radiology; PCP Family Medicine; Visit Provider Internal Medicine Gastroenterology
DX: R93.3 Abnormal findings on diagnostic imaging of other parts of digestive tract (principal)
CPT/HCPCS: 32405; 36415; 71045; 77012; 85049; 85610; 88305; 88313

== ENCOUNTER 2021-08-21 15:50 | Outpatient (CLI) | payer BC, SELFPAY ==
--- NOTE | ~2021-08-21 | US_ITS ---
EXAMINATION: US carotid duplex BI DATE: 08/21/2021 16:21 INDICATION: TIA TECHNIQUE: Grayscale, color Doppler, and pulsed Doppler images of the cervical carotid arteries were obtained. The degree of vessel stenosis is placed in one of the following categories: normal, <50%, 5 0-69%, >=70% but less than near-occlusion, near-occlusion, or total occlusion. Note that percent sten osis relative to normal distal artery lumen diameter is indirectly measured from velocity measurement s as described by Dagoberto, et al. Radiology 2003; 229:[id number]. Notes: Normal: Peak systolic velocity <125 centimeters/sec and no plaque <50%. Peak systolic velocity <125 ( EDV <40; ICA/CCA PSV ratio <2.0; used these factors only a tandem lesions or low cardiac output or co ntralateral disease) 50-69 %: PSV 125-230 (EDV 40-100; ratio 2-4) >= 70% but less than near occlusion: PSV greater than 230 (EDV > 100; ratio> 4.0) Near Occlusion: PSV that is variable; markedly narrowed lumen Occlusion: Absent flow on color/spectral Doppler and no lumen on chiu scale. COMPARISON: None. FINDINGS: RIGHT: The right common carotid artery (CCA) peak systolic velocity (PSV) is 78 cm/s. The right internal car otid artery (ICA) PSV is 64 cm/s. The right ICA end-diastolic velocity (EDV) is 9 cm/s. The right ICA /CCA PSV ratio is 0.8. The external carotid artery (ECA) PSV is 77 cm/s. There is antegrade flow in t he right vertebral artery. LEFT: The left CCA PSV is 88 cm/s. The left ICA PSV is 55 cm/s. The left ICA EDV is 8 cm/s. The left ICA/CC A PSV ratio is 0.6. The ECA PSV is 86 cm/s. There is antegrade flow in the left vertebral artery. IMPRESSION: 1. Less than 50% stenosis in the right internal carotid artery by sonographic criteria. 2. Less than 50% stenosis in the left internal carotid artery by sonographic criteria. Reviewed, dictated and finalized at location B. [employer] IMPRESSION: 1. Less than 50% stenosis in the right internal carotid artery by sonographic carmelo chavis. 2. Less than 50% stenosis in the left internal carotid artery by sonographic mitch campos.
== END 2021-08-21 15:51 | disposition home or self-care (01) ==
PROVIDERS: PCP Family Medicine; Visit Provider Physician Assistant
DX: I65.23 Occlusion and stenosis of bilateral carotid arteries (principal)
CPT/HCPCS: 93880

== ENCOUNTER 2023-01-24 05:18 | Day surgery (SDC) | payer BC, SELFPAY ==
[2023-01-14 08:32] VITALS: BMI 28.3
[2023-01-24 06:48] VITALS: BP 147/74; PULSE 68; RESP 16; TEMP 36.4; O2SAT 100; BMI 27.8
[2023-01-24] MEDS: LACTATED RINGERS 1,000 ML 150 ML IV CONT (07:08)
--- NOTE | 2023-01-24 07:25 | PM.HPGS ---
History of Present Illness History of Present Illness Consent: Risks, benefits, and alternatives have been discussed and questions answered. Patient agrees to proceed with procedure. Chief complaint: neoplasm screening Narrative: Wm Martinez is a 62 year old male Presents for screening colonoscopy. Patient's current weight appetite and bowel movements are normal. Patient denies abdominal pain. He has had no bleeding. Family history noncontributory. 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 Currently stable. Followed by Dr. Rush. Review of Systems Review of Systems: Review of systems noncontributory. [facility] Past Medical History Medical History Hemorrhoids HLD (hyperlipidemia) Hypertension Hypothyroidism Mass of pancreas Nephrolithiasis Normal colonoscopy (~2010) Prediabetes Renal cell carcinoma UTI (urinary tract infection) Surgical History Surgical History H/O left nephrectomy Hx of colonoscopy at age 50 Hx of tonsillectomy (~1968) Family History Family History Grandparent Malignant neoplasm of prostate Father Hypertension Social History Social History Smoking status: Former smoker Tobacco type: cigars Second hand tobacco smoke exposure: No Alcohol intake: never Substance use: never Substance use type: does not use Lack of Transportation: No Lack of Food: Never True Current Housing: I Have Housing Concerned About Future Housing: No Difficulty Paying Gas/Electric Bills: No Difficulty Paying for Meds: No Currently Unemployed: No Education: Master's Degree or Higher Difficulty w/ Childcare or Family Care: No Living arrangements: with family Gender identity (if verbalized by the patient): Male Spiritual care concerns: No Agree to blood products: Yes Meds Home Medications and Allergies Home Medications Medication Instructions Recorded Confirmed Type rosuvastatin 40 mg tablet (Crestor) 40 mg PO DAILY #90 tabs 10/28/22 01/24/23 Rx amlodipine 5 mg tablet 10 mg PO DAILY #180 tabs 11/14/22 01/24/23 Rx metoprolol succinate 50 mg 50 mg PO DAILY 11/20/22 01/24/23 History tablet,extended release 24 hr pembrolizumab 25 mg/mL intravenous 200 mg IV .Once every 3 weeks 11/20/22 01/24/23 History solution (Keytruda) levothyroxine 88 mcg tablet 88 mcg PO DAILY #90 tabs 12/06/22 01/24/23 Rx tramadol 50 mg tablet 50 mg PO Q6H PRN pain #30 tabs 12/12/22 01/24/23 Rx Allergies Allergy/AdvReac Type Severity Reaction Status Date / Time Penicillins Allergy Unknown Unknown Verified 01/24/23 06:46 Vital Signs Vital Signs - 24 hr 01/24/23 06:48 Temperature 97.5 F L Pulse Rate 68 Respiratory Rate 16 Blood Pressure 147/74 H Pulse Oximetry 100 Oxygen Delivery Room Air Exam Narrative: Physical a exam reveals patient to be alert. Vital signs stable. HEENT exam is unremarkable. Patient is anicteric. Lungs are clear to auscultation and percussion. Heart is without murmur or extra sounds. Abdomen bowel sounds are present soft nontender with no organomegaly. Digital external rectal exam is normal. Assessment and Plan Assessment and plan (1) Colon cancer screening: Code(s): Z12.11 - Encounter for screening for malignant neoplasm of colon Status: Acute Assessment and Plan: Patient presents for colon cancer screening. Further recommendations may be given after endoscopy. (2) Renal cell carcinoma: Qualifiers: Laterality: unspecified laterality Qualified Code(s): C64.9 - Malignant neoplasm of unspecified kidney, except renal pelvis Code(s): C64.9 - Malignant neoplasm of unspecified kidney, except renal pelvis
--- NOTE | 2023-01-24 07:52 | WPDANESEPPF ---
Anes - Initial Pre Proc Eval Procedure: Operation Date: 01/24/23 08:00 Proposed Procedures p Screening Colonoscopy - Wallace Gottlieb MD Date/Time: 01/24/23 07:52 Surgeon: Wallace Gottlieb MD Pre Op Diagnosis: neoplasm screening Patient Data Age: 62 Gender: M Height: 1.68 m Weight: 78.4 kg Last Vital Signs Temp 97.5 F L 01/24/23 06:48 Pulse 68 01/24/23 06:48 Resp 16 01/24/23 06:48 BP 147/74 H 01/24/23 06:48 Pulse Ox 100 01/24/23 06:48 O2 Del Method Room Air 01/24/23 06:48 Allergies Allergy/AdvReac Type Severity Reaction Status Date / Time Penicillins Allergy Unknown Unknown Verified 01/24/23 06:46 Home Medications Medication Instructions Recorded Confirmed Type rosuvastatin 40 mg tablet (Crestor) 40 mg PO DAILY #90 tabs 10/28/22 01/24/23 Rx amlodipine 5 mg tablet 10 mg PO DAILY #180 tabs 11/14/22 01/24/23 Rx metoprolol succinate 50 mg 50 mg PO DAILY 11/20/22 01/24/23 History tablet,extended release 24 hr pembrolizumab 25 mg/mL intravenous 200 mg IV .Once every 3 weeks 11/20/22 01/24/23 History solution (Keytruda) levothyroxine 88 mcg tablet 88 mcg PO DAILY #90 tabs 12/06/22 01/24/23 Rx tramadol 50 mg tablet 50 mg PO Q6H PRN pain #30 tabs 12/12/22 01/24/23 Rx Patient hx anesthesia problems: none Family hx anesthesia problems: none Results Review: All pre-operative results and documents have been reviewed as part of the pre-operative evaluation. [facility] Past Medical History Medical History Hemorrhoids HLD (hyperlipidemia) Hypertension Hypothyroidism Mass of pancreas Nephrolithiasis Normal colonoscopy (~2010) Prediabetes Renal cell carcinoma UTI (urinary tract infection) Surgical History Surgical History H/O left nephrectomy Hx of colonoscopy at age 50 Hx of tonsillectomy (~1969) Family History Family History Grandparent Malignant neoplasm of prostate Father Hypertension Social History Social History Smoking status: Former smoker Tobacco type: cigars Second hand tobacco smoke exposure: No Alcohol intake: never Substance use: never Substance use type: does not use Lack of Transportation: No Lack of Food: Never True Current Housing: I Have Housing Concerned About Future Housing: No Difficulty Paying Gas/Electric Bills: No Difficulty Paying for Meds: No Currently Unemployed: No Education: Master's Degree or Higher Difficulty w/ Childcare or Family Care: No Living arrangements: with family Gender identity (if verbalized by the patient): Male Spiritual care concerns: No Agree to blood products: Yes Anes - Eval Final PreProcedure Day of Procedure 01/24/23 07:52 Patient weight: normal Heart: regular rate and rhythm Lungs: clear to auscultation Airway: Mallampati scale class II Neurological: alert and oriented Last oral intake: >/= 8 hours ASA classification: III Emergent: no Anesthetic plan: proceed Anesthesia type and monitoring: general GIVS and standard monitoring Results Review: All pre-operative results and documents have been reviewed as part of the pre-operative evaluation. Informed Consent: The patient's anesthetic plan and its attendant risks and benefits were discussed with the patient/family/POA. Questions were solicited and answers provided to the satisfaction of the patient/family/POA.
[2023-01-24 08:18] VITALS: BP 138/71; PULSE 74; RESP 22; O2SAT 100
[2023-01-24 08:28] VITALS: BP 134/80; PULSE 67; RESP 16; O2SAT 98
[2023-01-24 08:38] VITALS: BP 146/88; PULSE 66; RESP 20; O2SAT 100
== END 2023-01-24 08:42 | disposition home or self-care (01) ==
PROVIDERS: PCP Family Medicine; Visit Provider Internal Medicine Gastroenterology
PROC: 0DJD8ZZ Inspection of Lower Intestinal Tract, Via Natural or Artificial Opening Endoscopic (ICD-10-PCS; CPT 45378; principal; 2023-01-24 08:00)
DX: Z12.11 Encounter for screening for malignant neoplasm of colon (principal); K64.8 Other hemorrhoids; I10 Essential (primary) hypertension; C78.89 Secondary malignant neoplasm of other digestive organs; E78.5 Hyperlipidemia, unspecified; E03.9 Hypothyroidism, unspecified; Z90.5 Acquired absence of kidney; Z87.891 Personal history of nicotine dependence; Z85.528 Personal history of other malignant neoplasm of kidney
CPT/HCPCS: 45378; J2704; J7120

== ENCOUNTER 2024-02-13 08:06 | Outpatient (CLI) | payer MEDICARE, SELFPAY ==
--- NOTE | ~2024-02-13 | US_ITS ---
Renal-Bladder ultrasound Clinical History: Chronic kidney disease Technique: Real-time sonographic imaging of the kidneys and urinary bladder was performed. Findings: The right kidney measures 12.0 cm in length. No right hydronephrosis. Renal calyces unremar kable. No renal mass seen. Left kidney not seen. The urinary bladder is moderately distended at the time of this exam. No intraluminal echoes are iden tified. No abnormal wall thickening is seen. Impression: Unremarkable ultrasound of the right kidney and urinary bladder. Left kidney not seen, compatible with prior nephrectomy. Reviewed, dictated and finalized at location M. Impression: Unremarkable ultrasound of the right kidney and urinary bladder. Left kidney not seen, compatible with prior nephrectomy.
== END 2024-02-13 08:07 ==
LOC: MICIMG 08:07
PROVIDERS: PCP Family Medicine; Visit Provider Physician Assistant Medical
DX: N18.2 Chronic kidney disease, stage 2 (mild) (principal); C64.9 Malignant neoplasm of unspecified kidney, except renal pelvis
CPT/HCPCS: 76775